=== PATIENT | male | born 1965 | race Caucasian/White ===

== ENCOUNTER 2020-01-01 16:20 | Inpatient (IN) | payer OTHER ==
[2020-01-01] MEDS ORDERED: Sodium Chloride 0.9% 2.5 ML Syringe FLUSH PRN (17:48)
[2020-01-01] MEDS ORDERED: Sodium Chloride 0.9% 10 ML Syringe FLUSH PRN (17:48)
[2020-01-01] MEDS ORDERED: Sodium Chloride 0.9% 1,000 ML IV ONE (17:48)
[2020-01-01] MEDS ORDERED: Vancomycin 1.25 GM SDV ONE (18:09)
--- NOTE | 2020-01-01 18:26 | CR ---
Indication: Cat bite 1.5 weeks ago with persistent swelling Technique: Two views right hand Comparison: None Findings/impression:: No fractures or bone lesions. No evidence for osteomyelitis. Focal soft tissue swelling of the proximal to mid 2nd digit. No soft tissue gas or foreign body. Dictated by Romana White MD @ Jan 01 2020 6:22PM Signed by Dr. Romana White @ Jan 01 2020 6:24PM
[2020-01-01 18:41] LABS: CARBON DIOXIDE,CO2 27.1 mmol/L (21.0-32.0); POTASSIUM,K 4.3 mmol/L (3.5-5.1)
--- NOTE | 2020-01-01 19:15 | EDM.PDOC ---
ED HPI GENERAL MEDICAL PROBLEM - General Chief Complaint: Upper Extremity Injury/Pain Stated Complaint: right hand finger injury Time Seen by Provider: 01/01/20 17:45 Source of Information: Reports: Patient History Limitations: Reports: No Limitations - History of Present Illness INITIAL COMMENTS - FREE TEXT/NARRATIVE: Patient bit by a cat 1.5-weks ago, noted redness/swelling/pain, got antibiotics augmentin 3 days ago but still no relief, now spreading into hand, No fever, N/V or diahporesis Right Finger-Index Pain Score (Numeric/FACES): 5 - Related Data Allergies Allergy/AdvReac Type Severity Reaction Status Date / Time No Known Allergies Allergy Verified 01/01/20 17:38 Home Meds: Home Meds Escitalopram Oxalate [Lexapro] 10 mg PO DAILY 01/01/20 [History] Gabapentin [Neurontin] 01/01/20 [History] Past Medical History Cardiovascular History: Reports: High Cholesterol Musculoskeletal History: Reports: Back Pain, Chronic - Infectious Disease History Infectious Disease History: Reports: Chicken Pox - Past Surgical History HEENT Surgical History: Reports: Other (See Below) Other HEENT Surgeries/Procedures: Stapendectomy Social & Family History - Tobacco Use Smoking Status *Q: Never Smoker - Caffeine Use Caffeine Use: Reports: Coffee - Recreational Drug Use Recreational Drug Use: No Review of Systems - Review of Systems Review Of Systems: Comprehensive ROS is negative, except as noted in HPI. ED EXAM, GENERAL - Physical Exam Exam: See Below Exam Limited By: No Limitations General Appearance: Alert, WD/WN, No Apparent Distress Ears: Normal External Exam Nose: Normal Inspection Throat/Mouth: Normal Inspection, Normal Voice, No Airway Compromise Head: Atraumatic, Normocephalic Neck: Normal Inspection Respiratory/Chest: No Respiratory Distress, Lungs Clear, Normal Breath Sounds, No Accessory Muscle Use Cardiovascular: Normal Peripheral Pulses Extremities: Other (significant swelling/redness/TTP of R 2nd digit extending into hand) Neurological: Alert Psychiatric: Normal Affect, Normal Mood Course - Vital Signs Last Recorded V/S: Last Vital Signs Temp 96.5 F L 01/01/20 17:35 Pulse 70 01/01/20 17:35 Resp 22 H 01/01/20 17:35 BP 169/113 H 01/01/20 17:35 Pulse Ox 98 01/01/20 17:35 - Orders/Labs/Meds Orders: Active Orders 24 hr Category Date Time Status CULTURE BLOOD [BC] Stat Lab 01/01/20 18:07 Received CULTURE BLOOD [BC] Stat Lab 01/01/20 18:13 Received Sodium Chloride 0.9% [Saline Flush] Med 01/01/20 17:48 Active 10 ml FLUSH ASDIRECTED PRN Sodium Chloride 0.9% [Saline Flush] Med 01/01/20 17:48 Active 2.5 ml FLUSH ASDIRECTED PRN Vancomycin 1.25 gm Med 01/01/20 17:53 Active Sodium Chloride 0.9% [Normal Saline (AdvBag)] 250 ml IV ONETIME Blood Culture x2 Reflex Set [OM.PC] Stat Oth 01/01/20 17:51 Ordered Saline Lock Insert [OM.PC] Stat Oth 01/01/20 17:48 Ordered Medication Orders Vancomycin HCl 1.25 gm/ Sodium (Chloride) 250 mls @ 167 mls/hr IV ONETIME ONE Stop: 01/01/20 19:22 Last Admin: 01/01/20 18:12 Dose: 167 mls/hr Documented by: FINESSE Sodium Chloride (Saline Flush) 10 ml FLUSH ASDIRECTED PRN PRN Reason: Keep Vein Open Last Admin: 01/01/20 18:12 Dose: 10 ml Documented by: FINESSE Sodium Chloride (Saline Flush) 2.5 ml FLUSH ASDIRECTED PRN PRN Reason: Keep Vein Open Last Admin: 01/01/20 18:12 Dose: 2.5 ml Documented by: FINESSE Labs: Laboratory Tests 01/01/20 01/01/20 01/01/20 Range/Units 18:07 18:07 18:07 WBC 6.73 (4.0-11.0) K/uL RBC 4.99 (4.50-5.90) M/uL Hgb 14.2 (13.0-17.0) g/dL Hct 43.2 (38.0-50.0) % MCV 86.6 (80.0-98.0) fL MCH 28.5 (27.0-32.0) pg MCHC 32.9 (31.0-37.0) g/dL RDW Std Deviation 41.1 (28.0-62.0) fl RDW Coeff of Fredo 13 (11.0-15.0) % Plt Count 284 (150-400) K/uL MPV 9.40 (7.40-12.00) fL Neut % (Auto) 59.7 (48.0-80.0) % Lymph % (Auto) 29.4 (16.0-40.0) % [place] % (Auto) 9.7 (0.0-15.0) % Eos % (Auto) 0.9 (0.0-7.0) % Baso % (Auto) 0.3 (0.0-1.5) % Neut # (Auto) 4.0 (1.4-5.7) K/uL Lymph # (Auto) 2.0 (0.6-2.4) K/uL [place] # (Auto) 0.7 (0.0-0.8) K/uL Eos # (Auto) 0.1 (0.0-0.7) K/uL Baso # (Auto) 0.0 (0.0-0.1) K/uL Nucleated RBC % 0.0 /100WBC Nucleated RBCs # 0 K/uL Lactate 0.7 (0.20-2.00) mmol/L Sodium 141 (136-148) mmol/L Potassium 4.3 (3.5-5.1) mmol/L Chloride 105 (98-107) mmol/L Carbon Dioxide 27.1 (21.0-32.0) mmol/L BUN 12 (7.0-18.0) mg/dL Creatinine 1.3 (0.8-1.3) mg/dL Est Cr Clr Drug Dosing 66.47 mL/min Estimated GFR (MDRD) 58.0 ml/min Glucose 85 (74-106) mg/dL Calcium 8.6 (8.5-10.1) mg/dL Magnesium 2.1 (1.8-2.4) mg/dL Total Bilirubin 0.3 (0.2-1.0) mg/dL AST 22 (15-37) IU/L ALT 30 (14-63) IU/L Alkaline Phosphatase 78 (46-116) U/L Total Protein 8.3 H (6.4-8.2) g/dL Albumin 3.7 (3.4-5.0) g/dL Globulin 4.6 H (2.6-4.0) g/dL Albumin/Globulin Ratio 0.8 L (0.9-1.6) Meds: Medications Generic Name Dose Route Start Last Admin Trade Name Maryse PRN Reason Stop Dose Admin Vancomycin HCl 1.25 gm/ Sodium 250 mls @ 167 mls/hr 01/01/20 17:53 01/01/20 18:12 Chloride IV 01/01/20 19:22 167 mls/hr ONETIME ONE Administration Sodium Chloride 10 ml 01/01/20 17:48 01/01/20 18:12 Saline Flush FLUSH 10 ml ASDIRECTED PRN Administration Keep Vein Open Sodium Chloride 2.5 ml 01/01/20 17:48 01/01/20 18:12 Saline Flush FLUSH 2.5 ml ASDIRECTED PRN Administration Keep Vein Open Discontinued Medications Generic Name Dose Route Start Last Admin Trade Name Maryse PRN Reason Stop Dose Admin Sodium Chloride 1,000 mls @ 999 mls/hr 01/01/20 17:48 01/01/20 18:12 Normal Saline IV 01/01/20 18:48 999 mls/hr .Bolus ONE Administration Vancomycin HCl Confirm 01/01/20 18:09 01/01/20 18:33 Vancomycin Administered 01/01/20 18:10 Not Given Dose 1.25 gm .ROUTE .STK-MED ONE Departure - Departure Time of Disposition: 19:11 Disposition: Admitted As Inpatient 68 Condition: Good Clinical Impression: Cellulitis Qualifiers: Site of cellulitis: extremity Site of cellulitis of extremity: finger Laterality: left Qualified Code(s): L03.012 - Cellulitis of left finger - Discharge Information Referrals: PCP,Unknown [Primary Care Provider] - Sepsis Event Note (ED) - Evaluation Sepsis Screening Result: Possible Sepsis Risk - Focused Exam Vital Signs: Vital Signs Temp Pulse Resp BP Pulse Ox 01/01/20 17:35 96.5 F L 70 22 H 169/113 H 98 - My Orders Last 24 Hours: My Active Orders 01/01/20 17:48 Sodium Chloride 0.9% [Saline Flush] 10 ml FLUSH ASDIRECTED PRN Sodium Chloride 0.9% [Saline Flush] 2.5 ml FLUSH ASDIRECTED PRN Saline Lock Insert [OM.PC] Stat 01/01/20 17:51 Blood Culture x2 Reflex Set [OM.PC] Stat 01/01/20 17:53 Vancomycin 1.25 gm Sodium Chloride 0.9% [Normal Saline (AdvBag)] 250 ml IV ONETIME 01/01/20 18:07 CULTURE BLOOD [BC] Stat 01/01/20 18:13 CULTURE BLOOD [BC] Stat - Assessment/Plan Last 24 Hours: My Active Orders 01/01/20 17:48 Sodium Chloride 0.9% [Saline Flush] 10 ml FLUSH ASDIRECTED PRN Sodium Chloride 0.9% [Saline Flush] 2.5 ml FLUSH ASDIRECTED PRN Saline Lock Insert [OM.PC] Stat 01/01/20 17:51 Blood Culture x2 Reflex Set [OM.PC] Stat 01/01/20 17:53 Vancomycin 1.25 gm Sodium Chloride 0.9% [Normal Saline (AdvBag)] 250 ml IV ONETIME 01/01/20 18:07 CULTURE BLOOD [BC] Stat 01/01/20 18:13 CULTURE BLOOD [BC] Stat
[2020-01-01] MEDS ORDERED: Acetaminophen 325 MG Tab PO PRN (20:54)
[2020-01-01] MEDS ORDERED: Albuterol/Ipratropium 3.0-0.5 MG/3 ML Neb Soln NEB PRN (20:54)
--- NOTE | 2020-01-01 21:02 | PCM.HP.2 ---
H&P History of Present Illness - General Date of Service: 01/01/20 Admit Problem/Dx: Admission Diagnosis/Problem Admission Diagnosis/Problem Cellulitis - History of Present Illness Initial Comments - Free Text/Narative: Patient is a 54 y/o M who comes in redness/swelling/pain of his right index finger after he was bitt by his house cat 1.5 weeks ago. Patienmt states that his pain and swellinbg has been gettting progressivly worse and on sunday ( 3 days ago) he was started on oral antibiotics (augmentin) but his swelling and redness is getting worse. No fever, N/V or diahporesis, no chest pain, palpitations, chillls, Patient has PMH of HLD, tinnitus. Xray of hand was negative for OM or any gas/fluid or FB. Patient is being admitted for management of cellulitis after failing outpatient oral treatment. Right Finger-Index Pain Score (Numeric/FACES): 5 - Related Data Allergies/Adverse Reactions: Allergies Allergy/AdvReac Type Severity Reaction Status Date / Time No Known Allergies Allergy Verified 01/01/20 23:18 Home Medications: Home Meds Gabapentin [Neurontin] 600 mg PO TID 01/01/20 [History] Budesonide/Formoterol Fumarate [Symbicort 160-4.5 Mcg Inhaler] 1 puff INH BID 01/02/20 [History] Sertraline [Zoloft] 100 mg PO QAM 01/02/20 [History] tiZANidine [Zanaflex] 8 mg PO BID PRN 01/02/20 [History] Past Medical History Cardiovascular History: Reports: High Cholesterol Musculoskeletal History: Reports: Back Pain, Chronic - Infectious Disease History Infectious Disease History: Reports: Chicken Pox - Past Surgical History HEENT Surgical History: Reports: Other (See Below) Other HEENT Surgeries/Procedures: Stapendectomy Social & Family History - Tobacco Use Smoking Status *Q: Never Smoker - Caffeine Use Caffeine Use: Reports: Coffee - Recreational Drug Use Recreational Drug Use: No H&P Review of Systems - Review of Systems: Review Of Systems: See Below General: Denies: Fever, Chills, Malaise Pulmonary: Denies: Shortness of Breath, Wheezing Cardiovascular: Denies: Chest Pain, Palpitations, Dyspnea on Exertion Gastrointestinal: Denies: Abdominal Pain, Anorexia, Black Stool, Vomiting Genitourinary: Denies: Dysuria, Frequency Musculoskeletal: Denies: Neck Pain, Shoulder Pain Skin: Reports: Erythema, Wound, Lesions. Denies: Cyanosis, Jaundice Psychiatric: Denies: Confusion, Depression, Mood Lability Hematologic/Lymphatic: Denies: Anemia, Easy Bleeding Exam - Exam Exam: See Below - Vital Signs Vital Signs: Last Vital Signs Temp 35.8 C L 01/01/20 17:35 Pulse 72 01/01/20 19:44 Resp 20 01/01/20 19:44 BP 169/113 H 01/01/20 17:35 Pulse Ox 96 01/01/20 19:44 Weight: 94.347 kg - Exam General: Alert, Oriented Neck: Supple, Trachea Midline Lungs: Clear to Auscultation Cardiovascular: Regular Rate, Regular Rhythm GI/Abdominal Exam: Normal Bowel Sounds, Soft, Non-Tender Skin: Warm, Other (right indedx finger swollen and red, underlying fluctulance, with modertae drainage. ) - Patient Data Lab Results Last 24 hrs: Laboratory Results - last 24 hr 01/01/20 01/01/20 01/01/20 Range/Units 18:07 18:07 18:07 WBC 6.73 (4.0-11.0) K/uL RBC 4.99 (4.50-5.90) M/uL Hgb 14.2 (13.0-17.0) g/dL Hct 43.2 (38.0-50.0) % MCV 86.6 (80.0-98.0) fL MCH 28.5 (27.0-32.0) pg MCHC 32.9 (31.0-37.0) g/dL RDW Std Deviation 41.1 (28.0-62.0) fl RDW Coeff of Fredo 13 (11.0-15.0) % Plt Count 284 (150-400) K/uL MPV 9.40 (7.40-12.00) fL Neut % (Auto) 59.7 (48.0-80.0) % Lymph % (Auto) 29.4 (16.0-40.0) % [place] % (Auto) 9.7 (0.0-15.0) % Eos % (Auto) 0.9 (0.0-7.0) % Baso % (Auto) 0.3 (0.0-1.5) % Neut # (Auto) 4.0 (1.4-5.7) K/uL Lymph # (Auto) 2.0 (0.6-2.4) K/uL [place] # (Auto) 0.7 (0.0-0.8) K/uL Eos # (Auto) 0.1 (0.0-0.7) K/uL Baso # (Auto) 0.0 (0.0-0.1) K/uL Nucleated RBC % 0.0 /100WBC Nucleated RBCs # 0 K/uL Lactate 0.7 (0.20-2.00) mmol/L Sodium 141 (136-148) mmol/L Potassium 4.3 (3.5-5.1) mmol/L Chloride 105 (98-107) mmol/L Carbon Dioxide 27.1 (21.0-32.0) mmol/L BUN 12 (7.0-18.0) mg/dL Creatinine 1.3 (0.8-1.3) mg/dL Est Cr Clr Drug Dosing 66.47 mL/min Estimated GFR (MDRD) 58.0 ml/min Glucose 85 (74-106) mg/dL Calcium 8.6 (8.5-10.1) mg/dL Magnesium 2.1 (1.8-2.4) mg/dL Total Bilirubin 0.3 (0.2-1.0) mg/dL AST 22 (15-37) IU/L ALT 30 (14-63) IU/L Alkaline Phosphatase 78 (46-116) U/L Total Protein 8.3 H (6.4-8.2) g/dL Albumin 3.7 (3.4-5.0) g/dL Globulin 4.6 H (2.6-4.0) g/dL Albumin/Globulin Ratio 0.8 L (0.9-1.6) Result Diagrams: 01/02/20 04:38 01/02/20 04:38 Sepsis Event Note - Evaluation Sepsis Screening Result: Possible Sepsis Risk - Focused Exam Vital Signs: Vital Signs Temp Pulse Resp BP Pulse Ox 01/01/20 19:44 72 20 96 01/01/20 17:35 35.8 C L 70 22 H 169/113 H 98 - Problem List (1) Cat bite involving extremity SNOMED Code(s): 084176637, [id number] ICD Code: [id number] - Status: Acute Current Visit: Yes (2) Cellulitis SNOMED Code(s): 263521157 ICD Code: L03.90 - CELLULITIS, UNSPECIFIED Status: Acute Current Visit: Yes Qualifiers: Site of cellulitis: extremity Site of cellulitis of extremity: finger L aterality: left Qualified Code(s): L03.012 - Cellulitis of left finger Problem List Initiated/Reviewed/Updated: Yes Orders Last 24hrs: Active Orders 24 hr Category Date Time Status Patient Status [ADT] Routine ADT 01/01/20 19:13 Active Antiembolic Devices [RC] PER UNIT ROUTINE Care 01/01/20 20:57 Ordered Oxygen Therapy [RC] PRN Care 01/01/20 20:56 Ordered RT Aerosol Therapy [RC] ASDIRECTED Care 01/01/20 20:57 Ordered VTE/DVT Education [RC] PER UNIT ROUTINE Care 01/01/20 20:56 Ordered Vital Signs [RC] Q4H Care 01/01/20 20:56 Ordered Heart Healthy Diet [DIET] Diet 01/02/20 Breakfast Ordered BMP [BASIC METABOLIC PANEL,BMP] [CHEM] AM Lab 01/02/20 05:11 Ordered CBC WITH AUTO DIFF [HEME] AM Lab 01/02/20 05:11 Ordered CORONAVIRUS COVID-19 PCR PHL Stat Lab 01/01/20 20:52 Ordered CULTURE BLOOD [BC] Stat Lab 01/01/20 18:07 Received CULTURE BLOOD [BC] Stat Lab 01/01/20 18:13 Received GLYCOSYLATED HEMOGLOBIN,HGBA1C [CHEM] AM Lab 01/02/20 05:11 Ordered MAGNESIUM [CHEM] AM Lab 01/02/20 05:11 Ordered PHOSPHORUS [CHEM] AM Lab 01/02/20 05:11 Ordered Acetaminophen [TylenoL] Med 01/01/20 20:54 Ordered 650 mg PO Q4H PRN Albuterol/Ipratropium [DuoNeb 3.0-0.5 MG/3 ML] Med 01/01/20 20:54 Ordered 3 ml NEB Q4HRRT PRN Escitalopram [Lexapro] Med 01/02/20 09:00 Ordered 10 mg PO DAILY Lactated Ringers @ 100 MLS/HR(1,000ml) Med 01/01/20 21:00 Ordered Lactated Ringers [Ringers, Lactated] 1,000 ml IV ASDIRECTED Pharmacy to Dose - Vancomycin Med 01/02/20 08:00 Ordered 1 dose .XX ASDIRECTED Sodium Chloride 0.9% [Saline Flush] Med 01/01/20 17:48 Active 10 ml FLUSH ASDIRECTED PRN Sodium Chloride 0.9% [Saline Flush] Med 01/01/20 17:48 Active 2.5 ml FLUSH ASDIRECTED PRN Blood Culture x2 Reflex Set [OM.PC] Stat Ot 01/01/20 17:51 Ordered Saline Lock Insert [OM.PC] Stat Oth 01/01/20 17:48 Ordered Sequential Compression Device [OM.PC] Per Unit Routine Ot 01/01/20 20:56 Ordered Resuscitation Status Routine Resus Stat 01/01/20 20:54 Ordered Medication Orders Acetaminophen (Tylenol) 650 mg PO Q4H PRN PRN Reason: Pain (Mild 1-3)/fever Albuterol/Ipratropium (Duoneb 3.0-0.5 Mg/3 Ml) 3 ml NEB Q4HRRT PRN PRN Reason: Shortness Of Breath/wheezing Escitalopram Oxalate (Lexapro) 10 mg PO DAILY [facility] Lactated Ringer's (Ringers, Lactated) 1,000 mls @ 100 mls/hr IV ASDIRECTED [facility] Sodium Chloride (Saline Flush) 10 ml FLUSH ASDIRECTED PRN PRN Reason: Keep Vein Open Last Admin: 01/01/20 18:12 Dose: 10 ml Documented by: DANNYKAGwen Sodium Chloride (Saline Flush) 2.5 ml FLUSH ASDIRECTED PRN PRN Reason: Keep Vein Open Last Admin: 01/01/20 18:12 Dose: 2.5 ml Documented by: [email or web address] Vancomycin HCl (Pharmacy To Dose - Vancomycin) 1 dose .XX ASDIRECTED [facility] Assessment/Plan Comment:: 54 y/o M admitted for right hand cellulitis/abscess cont IV vancomycin, add clindamycin f/u on blood and wound cultures consult wound care May need CT scan of hand if no improvement Tylenol for pain check HbA1c, lipid Possibly has HTN, cont vitals Q4H
[2020-01-01] MEDS: Lactated Ringers 1,000 ML IV SCH (22:59)
[2020-01-02] MEDS ORDERED: DEXTROSE IV ONE (01:30)
[2020-01-02] MEDS ORDERED: CLINDAMYCIN PHOSPHATE IV ONE (01:30)
[2020-01-02 06:36] LABS: BLOOD UREA NITROGEN,BUN 11 mg/dL (7.0-18.0); CHLORIDE,CL 106 mmol/L (98-107); GLUCOSE RANDOM 81 mg/dL (74-106); POTASSIUM,K 4.1 mmol/L (3.5-5.1); SODIUM,NA 141 mmol/L (136-148)
[2020-01-02 07:10] LABS: HEMOGLOBIN A1C 5.9 % (4.5-6.2)
[2020-01-02] MEDS: Lactated Ringers 1,000 ML IV SCH ×2 (08:10→23:31)
[2020-01-02] MEDS ORDERED: cefTRIAXone 2 GM in Premix Bag 1 BAG IV SCH (08:15)
[2020-01-02] MEDS ORDERED: Escitalopram 10 MG Tab PO SCH (09:00)
[2020-01-02] MEDS: Clindamycin Phosphate in D5W 600 MG in Premix Bag 1 BAG IV SCH ×4 (10:35→17:33)
[2020-01-02] MEDS: cefTRIAXone 2 GM in Premix Bag 1 BAG IV SCH (11:24)
--- NOTE | 2020-01-02 12:09 | PCM.PN ---
- General Info Date of Service: 01/02/20 Admission Dx/Problem (Free Text): Admission Diagnosis/Problem Admission Diagnosis/Problem Cellulitis Subjective Update: Reports pain improvement and redness to R hand and finger. scant purulent drainage noted. No chest pain or SOB. Feeling ok. Functional Status: Reports: Pain Controlled, Tolerating Diet, Ambulating, Urinating - Review of Systems General: Reports: No Symptoms. Denies: Fatigue, Malaise Pulmonary: Reports: No Symptoms. Denies: Shortness of Breath Cardiovascular: Reports: No Symptoms. Denies: Chest Pain Gastrointestinal: Reports: No Symptoms. Denies: Abdominal Pain, Nausea, Vomiting Genitourinary: Reports: No Symptoms. Denies: Dysuria, Frequency, Burning Musculoskeletal: Reports: No Symptoms Skin: Reports: No Symptoms, Other (wound to R index finger, slightly improvement) Neurological: Reports: No Symptoms Psychiatric: Reports: No Symptoms - Patient Data Vitals - Most Recent: Last Vital Signs Temp 98.4 F 01/02/20 07:18 Pulse 68 01/02/20 07:18 Resp 16 01/02/20 07:18 BP 135/81 01/02/20 07:18 Pulse Ox 96 01/02/20 07:18 Weight - Most Recent: 94.347 kg I&O - Last 24 Hours: Intake & Output 01/01/20 01/02/20 01/02/20 22:59 06:59 14:59 Intake Total 680 300 Output Total 520 Balance 160 300 Lab Results Last 24 Hours: Laboratory Results - last 24 hr 01/01/20 01/01/20 01/01/20 Range/Units 18:07 18:07 18:07 WBC 6.73 (4.0-11.0) K/uL RBC 4.99 (4.50-5.90) M/uL Hgb 14.2 (13.0-17.0) g/dL Hct 43.2 (38.0-50.0) % MCV 86.6 (80.0-98.0) fL MCH 28.5 (27.0-32.0) pg MCHC 32.9 (31.0-37.0) g/dL RDW Std Deviation 41.1 (28.0-62.0) fl RDW Coeff of Fredo 13 (11.0-15.0) % Plt Count 284 (150-400) K/uL MPV 9.40 (7.40-12.00) fL Neut % (Auto) 59.7 (48.0-80.0) % Lymph % (Auto) 29.4 (16.0-40.0) % [place] % (Auto) 9.7 (0.0-15.0) % Eos % (Auto) 0.9 (0.0-7.0) % Baso % (Auto) 0.3 (0.0-1.5) % Neut # (Auto) 4.0 (1.4-5.7) K/uL Lymph # (Auto) 2.0 (0.6-2.4) K/uL [place] # (Auto) 0.7 (0.0-0.8) K/uL Eos # (Auto) 0.1 (0.0-0.7) K/uL Baso # (Auto) 0.0 (0.0-0.1) K/uL Nucleated RBC % 0.0 /100WBC Nucleated RBCs # 0 K/uL Lactate 0.7 (0.20-2.00) mmol/L Sodium 141 (136-148) mmol/L Potassium 4.3 (3.5-5.1) mmol/L Chloride 105 (98-107) mmol/L Carbon Dioxide 27.1 (21.0-32.0) mmol/L BUN 12 (7.0-18.0) mg/dL Creatinine 1.3 (0.8-1.3) mg/dL Est Cr Clr Drug Dosing 66.47 mL/min Estimated GFR (MDRD) 58.0 ml/min Glucose 85 (74-106) mg/dL Hemoglobin A1c (4.5-6.2) % Calcium 8.6 (8.5-10.1) mg/dL Phosphorus (2.6-4.7) mg/dL Magnesium 2.1 (1.8-2.4) mg/dL Total Bilirubin 0.3 (0.2-1.0) mg/dL AST 22 (15-37) IU/L ALT 30 (14-63) IU/L Alkaline Phosphatase 78 (46-116) U/L Total Protein 8.3 H (6.4-8.2) g/dL Albumin 3.7 (3.4-5.0) g/dL Globulin 4.6 H (2.6-4.0) g/dL Albumin/Globulin Ratio 0.8 L (0.9-1.6) Triglycerides (0-200) mg/dL Cholesterol (50-200) mg/dL LDL Cholesterol, Calc (60-180) mg/dL VLDL Cholesterol (5-55) mg/dL HDL Cholesterol (40-60) mg/dL Cholesterol/HDL Ratio (3.3-6.0) SARS-CoV-2 RNA (RASHI) (NEGATIVE) 01/01/20 01/02/20 01/02/20 Range/Units 21:03 04:38 04:38 WBC 5.07 (4.0-11.0) K/uL RBC 4.73 (4.50-5.90) M/uL Hgb 13.2 (13.0-17.0) g/dL Hct 40.9 (38.0-50.0) % MCV 86.5 (80.0-98.0) fL MCH 27.9 (27.0-32.0) pg MCHC 32.3 (31.0-37.0) g/dL RDW Std Deviation 41.1 (28.0-62.0) fl RDW Coeff of Fredo 13 (11.0-15.0) % Plt Count 285 (150-400) K/uL MPV 9.90 (7.40-12.00) fL Neut % (Auto) 52.0 (48.0-80.0) % Lymph % (Auto) 36.1 (16.0-40.0) % [place] % (Auto) 9.9 (0.0-15.0) % Eos % (Auto) 1.2 (0.0-7.0) % Baso % (Auto) 0.8 (0.0-1.5) % Neut # (Auto) 2.6 (1.4-5.7) K/uL Lymph # (Auto) 1.8 (0.6-2.4) K/uL [place] # (Auto) 0.5 (0.0-0.8) K/uL Eos # (Auto) 0.1 (0.0-0.7) K/uL Baso # (Auto) 0.0 (0.0-0.1) K/uL Nucleated RBC % 0.0 /100WBC Nucleated RBCs # 0 K/uL Lactate (0.20-2.00) mmol/L Sodium 141 (136-148) mmol/L Potassium 4.1 (3.5-5.1) mmol/L Chloride 106 (98-107) mmol/L Carbon Dioxide 26.0 (21.0-32.0) mmol/L BUN 11 (7.0-18.0) mg/dL Creatinine 1.1 (0.8-1.3) mg/dL Est Cr Clr Drug Dosing 78.56 mL/min Estimated GFR (MDRD) > 60.0 ml/min Glucose 81 (74-106) mg/dL Hemoglobin A1c (4.5-6.2) % Calcium 8.2 L (8.5-10.1) mg/dL Phosphorus 2.7 (2.6-4.7) mg/dL Magnesium 1.8 (1.8-2.4) mg/dL Total Bilirubin (0.2-1.0) mg/dL AST (15-37) IU/L ALT (14-63) IU/L Alkaline Phosphatase (46-116) U/L Total Protein (6.4-8.2) g/dL Albumin (3.4-5.0) g/dL Globulin (2.6-4.0) g/dL Albumin/Globulin Ratio (0.9-1.6) Triglycerides 89 (0-200) mg/dL Cholesterol 152 (50-200) mg/dL LDL Cholesterol, Calc 91 (60-180) mg/dL VLDL Cholesterol 17 (5-55) mg/dL HDL Cholesterol 43 (40-60) mg/dL Cholesterol/HDL Ratio 3.5 (3.3-6.0) SARS-CoV-2 RNA (RASHI) NEGATIVE (NEGATIVE) 01/02/20 Range/Units 04:38 WBC (4.0-11.0) K/uL RBC (4.50-5.90) M/uL Hgb (13.0-17.0) g/dL Hct (38.0-50.0) % MCV (80.0-98.0) fL MCH (27.0-32.0) pg MCHC (31.0-37.0) g/dL RDW Std Deviation (28.0-62.0) fl RDW Coeff of Fredo (11.0-15.0) % Plt Count (150-400) K/uL MPV (7.40-12.00) fL Neut % (Auto) (48.0-80.0) % Lymph % (Auto) (16.0-40.0) % [place] % (Auto) (0.0-15.0) % Eos % (Auto) (0.0-7.0) % Baso % (Auto) (0.0-1.5) % Neut # (Auto) (1.4-5.7) K/uL Lymph # (Auto) (0.6-2.4) K/uL [place] # (Auto) (0.0-0.8) K/uL Eos # (Auto) (0.0-0.7) K/uL Baso # (Auto) (0.0-0.1) K/uL Nucleated RBC % /100WBC Nucleated RBCs # K/uL Lactate (0.20-2.00) mmol/L Sodium (136-148) mmol/L Potassium (3.5-5.1) mmol/L Chloride (98-107) mmol/L Carbon Dioxide (21.0-32.0) mmol/L BUN (7.0-18.0) mg/dL Creatinine (0.8-1.3) mg/dL Est Cr Clr Drug Dosing mL/min Estimated GFR (MDRD) ml/min Glucose (74-106) mg/dL Hemoglobin A1c 5.9 (4.5-6.2) % Calcium (8.5-10.1) mg/dL Phosphorus (2.6-4.7) mg/dL Magnesium (1.8-2.4) mg/dL Total Bilirubin (0.2-1.0) mg/dL AST (15-37) IU/L ALT (14-63) IU/L Alkaline Phosphatase (46-116) U/L Total Protein (6.4-8.2) g/dL Albumin (3.4-5.0) g/dL Globulin (2.6-4.0) g/dL Albumin/Globulin Ratio (0.9-1.6) Triglycerides (0-200) mg/dL Cholesterol (50-200) mg/dL LDL Cholesterol, Calc (60-180) mg/dL VLDL Cholesterol (5-55) mg/dL HDL Cholesterol (40-60) mg/dL Cholesterol/HDL Ratio (3.3-6.0) SARS-CoV-2 RNA (RASHI) (NEGATIVE) Eliecer Results Last 24 Hours: Microbiology 01/01/20 23:57 Wound Culture - Preliminary Finger, Right - Right Index Med Orders - Current: Current Medications Acetaminophen (Tylenol) 650 mg PO Q4H PRN PRN Reason: Pain (Mild 1-3)/fever Albuterol/Ipratropium (Duoneb 3.0-0.5 Mg/3 Ml) 3 ml NEB Q4HRRT PRN PRN Reason: Shortness Of Breath/wheezing Escitalopram Oxalate (Lexapro) 10 mg PO DAILY [facility] Last Admin: 01/02/20 09:17 Dose: Not Given Documented by: Lactated Ringer's (Ringers, Lactated) 1,000 mls @ 100 mls/hr IV ASDIRECTED [facility] Last Admin: 01/02/20 08:10 Dose: 100 mls/hr Documented by: Vancomycin HCl 1.25 gm/ Sodium (Chloride) 250 mls @ 166.667 mls/hr IV Q12H [facility] Last Admin: 01/02/20 08:07 Dose: 166.667 mls/hr Documented by: Clindamycin Phosphate 600 mg/ (Premix) 50 mls @ 94.34 mls/hr IV Q8H [facility] Last Admin: 01/02/20 10:35 Dose: 94.34 mls/hr Documented by: Ceftriaxone Sodium/Dextrose 2 (gm/ Premix) 50 mls @ 100 mls/hr IV Q24H [facility] Last Admin: 01/02/20 11:24 Dose: 100 mls/hr Documented by: Sodium Chloride (Saline Flush) 10 ml FLUSH ASDIRECTED PRN PRN Reason: Keep Vein Open Last Admin: 01/01/20 18:12 Dose: 10 ml Documented by: Sodium Chloride (Saline Flush) 2.5 ml FLUSH ASDIRECTED PRN PRN Reason: Keep Vein Open Last Admin: 01/01/20 18:12 Dose: 2.5 ml Documented by: Vancomycin HCl (Pharmacy To Dose - Vancomycin) 1 dose .XX ASDIRECTED [facility] Discontinued Medications Sodium Chloride (Normal Saline) 1,000 mls @ 999 mls/hr IV .Bolus ONE Stop: 01/01/20 18:48 Last Admin: 01/01/20 18:12 Dose: 999 mls/hr Documented by: Vancomycin HCl 1.25 gm/ Sodium (Chloride) 250 mls @ 167 mls/hr IV ONETIME ONE Stop: 01/01/20 19:22 Last Admin: 01/01/20 18:12 Dose: 167 mls/hr Documented by: Clindamycin Phosphate 450 mg/ (Sodium Chloride) 53 mls @ 100 mls/hr IV Q8H [facility] Clindamycin Phosphate (Cleocin In D5w) 37.5 mls @ 75 mls/hr IV ONETIME ONE Stop: 01/02/20 01:59 Last Admin: 01/02/20 02:00 Dose: 75 mls/hr Documented by: Ceftriaxone Sodium/Dextrose 2 (gm/ Premix) 50 mls @ 100 mls/hr IV Q24H [facility] Last Admin: 01/02/20 08:43 Dose: Not Given Documented by: Vancomycin HCl (Vancomycin) Confirm Administered Dose 1.25 gm .ROUTE .STK-MED ONE Stop: 01/01/20 18:10 Last Admin: 01/01/20 18:33 Dose: Not Given Documented by: Vancomycin HCl (Pharmacy To Dose - Vancomycin) 1 dose .XX ASDIRECTED [facility] - Exam General: Alert, Oriented, Cooperative, No Acute Distress Lungs: Clear to Auscultation, Normal Respiratory Effort Cardiovascular: Regular Rate, Regular Rhythm GI/Abdominal Exam: Normal Bowel Sounds, Soft, Non-Tender Extremities: Normal Inspection, Normal Range of Motion, Non-Tender Wound/Incisions: Drainage (scant purulence noted.), Erythema Improving, Other (erythema improving to aroea surroing PIP on R index finger. dry scaling skin noted with induration and slight fluctuance over joint. ) Psy/Mental Status: Alert, Normal Affect, Normal Mood Sepsis Event Note - Evaluation Sepsis Screening Result: No Definite Risk - Focused Exam Vital Signs: Vital Signs Temp Pulse Resp BP Pulse Ox 01/02/20 07:18 98.4 F 68 16 135/81 96 01/02/20 04:24 97.8 F 58 L 18 144/82 H 96 - Problem List & Annotations (1) Cat bite involving extremity SNOMED Code(s): 469721003, 959581773 Code(s): KLW2435 - Status: Acute Current Visit: Yes (2) Cellulitis SNOMED Code(s): 921729035 Code(s): L03.90 - CELLULITIS, UNSPECIFIED Status: Acute Current Visit: Yes Qualifiers: Site of cellulitis: extremity Site of cellulitis of extremity: finger Laterality: left Qualified Code(s): L03.012 - Cellulitis of left finger - Problem List Review Problem List Initiated/Reviewed/Updated: Yes - My Orders Last 24 Hours: My Active Orders 01/02/20 10:18 Hand w Cont Rt [CT] Urgent 01/02/20 10:30 cefTRIAXone [Rocephin in Dextrose,Iso-Osm 2 GM/50 ML] 2 gm Premix Bag 1 bag IV Q24H - Plan Plan:: 54 y/o M admitted for right hand cellulitis possible abscess 1. Cat bite/ cellulitis to R PIP joint index finger - Add Rocephin, continue Clindamycin and Vancomycin - f/u on blood and wound cultures - Add CT scan of hand with contrast today, consult with surgery after CT - Tylenol for pain VTE prophylaxis: SCDs Dispo: Pending CT results, likely 1-2 more days.
[2020-01-02] MEDS ORDERED: Iopamidol 755 MG/ML 500 ML Multipack Bottle IVPUSH ONE (12:23)
--- NOTE | 2020-01-02 12:44 | CT ---
HISTORY: Cellulitis, cat bite of the index finger. TECHNIQUE: Intravenous contrast enhanced CT of the right hand. 75 mL of Isovue-370 intravenous contrast administered. COMPARISON: Radiographs 01/01/2020. FINDINGS: There is soft tissue swelling involving the index finger with infiltration of the soft tissues compatible with cellulitis. There is no soft tissue gas or radiopaque foreign body. There is a approximately 5 mm area of low attenuation within the soft tissues along the radial aspect of the proximal phalangeal joint of the index finger as subtly seen on axial image #226 series 202 and coronal image #57 of series 203. This may reflect a small fluid collection. There is no erosive change involving the proximal or distal interphalangeal joints of the index finger. No bony destructive change specific for acute osteomyelitis. There are a few scattered subchondral cysts involving metacarpal heads, distal scaphoid and distal radius. There are few scattered small bone islands. No acute fracture. IMPRESSION: 1. Soft tissue swelling along with soft tissue infiltration involving the index finger compatible with cellulitis. 2. No soft tissue gas. 3. Approximately 5 mm area of low attenuation within the soft tissues along the radial aspect of the proximal interphalangeal joint may reflect a small fluid collection. 4. No bony destructive change specific for osteomyelitis. 5. No radiopaque foreign body. Dictated by Eran Lane MD @ 01/02/2020 12:43:19 PM Please note that all CT scans at this facility use dose modulation, iterative reconstruction, and/or weight-based dosing when appropriate to reduce radiation dose to as low as reasonably achievable. Dictated by: Eran Lane MD @ 01/02/2020 12:43:29 (Electronically Signed)
--- NOTE | 2020-01-02 13:59 | PCM.SN.2 ---
- Free Text/Narrative Note: CT results reviewed and show soft tissue swelling along with 5 mm area of low attentuation with in the soft tissue along the radial aspect of the proxmial interphalangeal joint, may reflect small fluid collection. SPoke with Dr Harley, general surgery, who did not feel comfortable addressing concerns of hand. I spoke with Dr Joo Singh, Plastic surgeon and hand specialist from [facility]. She recommended, since improvement is happening with IV abx therapy, to continue with that now. If he stalls, worsens or has collection accumulate that is no longer draining would she then recommend transfer for I/D of that area. She also recommended warm soap soaks 15 min BID and encourage movement in soaks and elevation all times of day. Mary and updated on plan and are in agreement. Will change to inpatient status as he will need longer than 2 midnight stay.
[2020-01-02] MEDS ORDERED: Gabapentin 300 MG Cap PO SCH (14:00)
[2020-01-02] MEDS: Bacitracin Oint 28.35 GM Tube TOP SCH ×2 (14:38→22:46)
[2020-01-02] MEDS: SERTRALINE 100 MG PO SCH (14:41)
[2020-01-02] MEDS ORDERED: Diphtheria,Pertussis(Acell),Tetanus Vaccine 0.5 ML Syringe IM ONE (14:52)
[2020-01-02] MEDS: Budesonide/Formoterol Fumarate [Symbicort 160-4.5 Mcg Inh INH SCH (20:40)
[2020-01-02] MEDS: TIZANIDINE 4 MG PO PRN (20:41)
[2020-01-03] MEDS: Clindamycin Phosphate in D5W 600 MG in Premix Bag 1 BAG IV SCH ×6 (02:05→18:12)
[2020-01-03] MEDS: Bacitracin Oint 28.35 GM Tube TOP SCH ×3 (06:16→21:58)
[2020-01-03 06:34] LABS: BLOOD UREA NITROGEN,BUN 9 mg/dL (7.0-18.0); CARBON DIOXIDE,CO2 25.7 mmol/L (21.0-32.0); CHLORIDE,CL 108 mmol/L (98-107); GLUCOSE RANDOM 89 mg/dL (74-106); SODIUM,NA 143 mmol/L (136-148)
--- NOTE | 2020-01-03 08:40 | PCM.PN ---
- General Info Date of Service: 01/03/20 Admission Dx/Problem (Free Text): Admission Diagnosis/Problem Admission Diagnosis/Problem Cellulitis Subjective Update: Reports pain improvement and redness to R hand and finger. scant purulent drainage noted. No chest pain or SOB. Feeling ok. - Review of Systems General: Denies: Fever, Weakness, Fatigue, Malaise Pulmonary: Denies: Shortness of Breath, Pleuritic Chest Pain Cardiovascular: Denies: Chest Pain, Palpitations Gastrointestinal: Denies: Abdominal Pain, Constipation, Decreased Appetite Genitourinary: Denies: Dysuria, Frequency, Burning Musculoskeletal: Reports: Joint Pain, Joint Swelling - Patient Data Vitals - Most Recent: Last Vital Signs Temp 36.6 C 01/03/20 04:00 Pulse 61 01/03/20 04:00 Resp 14 01/03/20 04:00 BP 129/83 01/03/20 04:00 Pulse Ox 98 01/03/20 04:00 Weight - Most Recent: 94.347 kg I&O - Last 24 Hours: Intake & Output 01/02/20 01/03/20 01/03/20 22:59 06:59 14:59 Intake Total 1200 3403 Output Total 1720 2750 Balance -520 653 Lab Results Last 24 Hours: Laboratory Results - last 24 hr 01/03/20 01/03/20 01/03/20 Range/Units 05:35 05:35 07:30 WBC 5.09 (4.0-11.0) K/uL RBC 4.82 (4.50-5.90) M/uL Hgb 13.4 (13.0-17.0) g/dL Hct 41.7 (38.0-50.0) % MCV 86.5 (80.0-98.0) fL MCH 27.8 (27.0-32.0) pg MCHC 32.1 (31.0-37.0) g/dL RDW Std Deviation 41.1 (28.0-62.0) fl RDW Coeff of Fredo 13 (11.0-15.0) % Plt Count 273 (150-400) K/uL MPV 9.60 (7.40-12.00) fL Neut % (Auto) 54.6 (48.0-80.0) % Lymph % (Auto) 33.8 (16.0-40.0) % [place] % (Auto) 9.6 (0.0-15.0) % Eos % (Auto) 1.4 (0.0-7.0) % Baso % (Auto) 0.6 (0.0-1.5) % Neut # (Auto) 2.8 (1.4-5.7) K/uL Lymph # (Auto) 1.7 (0.6-2.4) K/uL [place] # (Auto) 0.5 (0.0-0.8) K/uL Eos # (Auto) 0.1 (0.0-0.7) K/uL Baso # (Auto) 0.0 (0.0-0.1) K/uL Nucleated RBC % 0.0 /100WBC Nucleated RBCs # 0 K/uL Sodium 143 (136-148) mmol/L Potassium 4.0 (3.5-5.1) mmol/L Chloride 108 H (98-107) mmol/L Carbon Dioxide 25.7 (21.0-32.0) mmol/L BUN 9 (7.0-18.0) mg/dL Creatinine 1.2 (0.8-1.3) mg/dL Est Cr Clr Drug Dosing 72.01 mL/min Estimated GFR (MDRD) > 60.0 ml/min Glucose 89 (74-106) mg/dL Calcium 8.3 L (8.5-10.1) mg/dL Vancomycin Trough 15.4 H (5.0-10.0) ug/mL Eliecer Results Last 24 Hours: Microbiology 01/01/20 18:13 Aerobic Blood Culture - Preliminary Blood - Venous - Lab Draw NO GROWTH AFTER 1 DAY Anaerobic Blood Culture - Preliminary NO GROWTH AFTER 1 DAY 01/01/20 18:07 Aerobic Blood Culture - Preliminary Blood - Venous NO GROWTH AFTER 1 DAY Anaerobic Blood Culture - Preliminary NO GROWTH AFTER 1 DAY 01/01/20 23:57 Wound Culture - Preliminary Finger, Right - Right Index Med Orders - Current: Current Medications Acetaminophen (Tylenol) 650 mg PO Q4H PRN PRN Reason: Pain (Mild 1-3)/fever Albuterol/Ipratropium (Duoneb 3.0-0.5 Mg/3 Ml) 3 ml NEB Q4HRRT PRN PRN Reason: Shortness Of Breath/wheezing Bacitracin (Bacitracin Oint) 0 gm TOP TID [facility] Last Admin: 01/03/20 06:16 Dose: 1 applic Documented by: Lactated Ringer's (Ringers, Lactated) 1,000 mls @ 100 mls/hr IV ASDIRECTED [facility] Last Admin: 01/02/20 23:31 Dose: 100 mls/hr Documented by: Vancomycin HCl 1.25 gm/ Sodium (Chloride) 250 mls @ 166.667 mls/hr IV Q12H [facility] Last Admin: 01/02/20 20:36 Dose: 166.667 mls/hr Documented by: Clindamycin Phosphate 600 mg/ (Premix) 50 mls @ 94.34 mls/hr IV Q8H [facility] Last Admin: 01/03/20 02:05 Dose: 94.34 mls/hr Documented by: Ceftriaxone Sodium/Dextrose 2 (gm/ Premix) 50 mls @ 100 mls/hr IV Q24H [facility] Last Admin: 01/02/20 11:24 Dose: 100 mls/hr Documented by: Budesonide/Formoterol Fumarate [Symbicort 160-4.5 Mcg Inh 1 each INH BID [facility] Last Admin: 01/02/20 20:40 Dose: 1 each Documented by: Sertraline [Zoloft] (100 Mg) 1 each PO QAM [facility] Last Admin: 01/02/20 14:41 Dose: 1 each Documented by: Tizanidine [Zanaflex (] 4 Mg) 2 each PO BID PRN PRN Reason: Muscle Spasm Last Admin: 01/02/20 20:41 Dose: 2 each Documented by: Gabapentin 600 Mg 1 each PO TID [facility] Last Admin: 01/03/20 06:16 Dose: 1 each Documented by: Sodium Chloride (Saline Flush) 10 ml FLUSH ASDIRECTED PRN PRN Reason: Keep Vein Open Last Admin: 01/01/20 18:12 Dose: 10 ml Documented by: Sodium Chloride (Saline Flush) 2.5 ml FLUSH ASDIRECTED PRN PRN Reason: Keep Vein Open Last Admin: 01/01/20 18:12 Dose: 2.5 ml Documented by: Vancomycin HCl (Pharmacy To Dose - Vancomycin) 1 dose .XX ASDIRECTED [facility] Discontinued Medications Diphtheria/Tetanus/Acell Pertussis (Adacel) 0.5 ml IM .ONCE ONE Stop: 10/02/20 14:53 Last Admin: 01/02/20 15:26 Dose: 0.5 ml Documented by: Escitalopram Oxalate (Lexapro) 10 mg PO DAILY [facility] Last Admin: 01/02/20 09:17 Dose: Not Given Documented by: Gabapentin (Neurontin) 600 mg PO TID [facility] Last Admin: 01/02/20 14:37 Dose: 600 mg Documented by: Sodium Chloride (Normal Saline) 1,000 mls @ 999 mls/hr IV .Bolus ONE Stop: 01/01/20 18:48 Last Admin: 01/01/20 18:12 Dose: 999 mls/hr Documented by: Vancomycin HCl 1.25 gm/ Sodium (Chloride) 250 mls @ 167 mls/hr IV ONETIME ONE Stop: 01/01/20 19:22 Last Admin: 01/01/20 18:12 Dose: 167 mls/hr Documented by: Clindamycin Phosphate 450 mg/ (Sodium Chloride) 53 mls @ 100 mls/hr IV Q8H [facility] Clindamycin Phosphate (Cleocin In D5w) 37.5 mls @ 75 mls/hr IV ONETIME ONE Stop: 01/02/20 01:59 Last Admin: 01/02/20 02:00 Dose: 75 mls/hr Documented by: Ceftriaxone Sodium/Dextrose 2 (gm/ Premix) 50 mls @ 100 mls/hr IV Q24H [facility] Last Admin: 01/02/20 08:43 Dose: Not Given Documented by: Iopamidol (Isovue Multipack-370 (76%)) 75 ml IVPUSH ONETIME ONE Stop: 01/02/20 12:24 Last Admin: 01/02/20 12:24 Dose: 75 ml Documented by: Vancomycin HCl (Vancomycin) Confirm Administered Dose 1.25 gm .ROUTE .STK-MED ONE Stop: 01/01/20 18:10 Last Admin: 01/01/20 18:33 Dose: Not Given Documented by: Vancomycin HCl (Pharmacy To Dose - Vancomycin) 1 dose .XX ASDIRECTED [facility] - Exam Quality Assessment: Supplemental Oxygen Neck: Supple, Trachea Midline Lungs: Clear to Auscultation, Normal Respiratory Effort Cardiovascular: Regular Rate, Regular Rhythm GI/Abdominal Exam: Normal Bowel Sounds, Non-Tender Extremities: Joint Swelling, Increased Warmth, Redness Wound/Incisions: Drainage, Erythema, Erythema Improving Sepsis Event Note - Evaluation Sepsis Screening Result: No Definite Risk - Focused Exam Vital Signs: Vital Signs Temp Pulse Resp BP Pulse Ox 01/03/20 04:00 36.6 C 61 14 129/83 98 01/03/20 00:00 36.1 C 61 14 131/77 100 - Problem List & Annotations (1) Cat bite involving extremity SNOMED Code(s): 587804966, 480726545 Code(s): FDY4634 - Status: Acute Current Visit: Yes (2) Cellulitis SNOMED Code(s): 225825470 Code(s): L03.90 - CELLULITIS, UNSPECIFIED Status: Acute Current Visit: Y es Qualifiers: Site of cellulitis: extremity Site of cellulitis of extremity: finger Laterality: left Qualified Code(s): L03.012 - Cellulitis of left finger - Problem List Review Problem List Initiated/Reviewed/Updated: Yes - My Orders Last 24 Hours: My Active Orders 01/02/20 08:00 Vancomycin 1.25 gm Sodium Chloride 0.9% [Normal Saline (AdvBag)] 250 ml IV Q12H 01/02/20 10:00 Clindamycin Phosphate in D5W [Cleocin in D5W] 600 mg Premix Bag 1 bag IV Q8H 01/04/20 07:30 VANCOMYCIN TROUGH [CHEM] Routine - Plan Plan:: 54 y/o M admitted for right hand cellulitis possible abscess 1. Cat bite/ cellulitis to R PIP joint index finger - Add Rocephin, continue Clindamycin and Vancomycin - f/u on blood and wound cultures - Tylenol for pain - spoke to Hand surgeon yesterday, recommended continuing current treatment and immediate outpatient follow up upon dc VTE prophylaxis: SCDs Dispo: likely 1-2 more days.
[2020-01-03] MEDS: Budesonide/Formoterol Fumarate [Symbicort 160-4.5 Mcg Inh INH SCH ×2 (09:00→21:55)
[2020-01-03] MEDS: SERTRALINE 100 MG PO SCH (09:00)
[2020-01-03] MEDS: cefTRIAXone 2 GM in Premix Bag 1 BAG IV SCH (11:14)
[2020-01-03] MEDS: Lactated Ringers 1,000 ML IV SCH (13:34)
[2020-01-03] MEDS: TIZANIDINE 4 MG PO PRN (21:56)
[2020-01-04] MEDS: Clindamycin Phosphate in D5W 600 MG in Premix Bag 1 BAG IV SCH ×6 (02:25→17:12)
[2020-01-04] MEDS: Lactated Ringers 1,000 ML IV SCH ×2 (03:23→13:55)
[2020-01-04] MEDS: Bacitracin Oint 28.35 GM Tube TOP SCH ×3 (06:27→21:53)
[2020-01-04 07:58] LABS: BLOOD UREA NITROGEN,BUN 9 mg/dL (7.0-18.0); CARBON DIOXIDE,CO2 27.6 mmol/L (21.0-32.0); CHLORIDE,CL 108 mmol/L (98-107); GLUCOSE RANDOM 89 mg/dL (74-106); POTASSIUM,K 4.1 mmol/L (3.5-5.1); SODIUM,NA 142 mmol/L (136-148)
[2020-01-04] MEDS: Budesonide/Formoterol Fumarate [Symbicort 160-4.5 Mcg Inh INH SCH ×2 (09:22→21:53)
[2020-01-04] MEDS: SERTRALINE 100 MG PO SCH (09:22)
[2020-01-04] MEDS: amLODIPine 5 MG Tab PO SCH (11:00)
[2020-01-04] MEDS: cefTRIAXone 2 GM in Premix Bag 1 BAG IV SCH (11:46)
--- NOTE | 2020-01-04 13:16 | PCM.PN ---
- General Info Date of Service: 01/04/20 Admission Dx/Problem (Free Text): Admission Diagnosis/Problem Admission Diagnosis/Problem Cellulitis Subjective Update: Reports significant pain improvement and redness to R hand and finger. scant purulent drainage noted. No chest pain or SOB. - Review of Systems General: Denies: Fever, Weakness, Fatigue HEENT: Denies: Contact Lenses, Dysphasia Pulmonary: Denies: Shortness of Breath, Pleuritic Chest Pain Cardiovascular: Denies: Chest Pain Gastrointestinal: Denies: Abdominal Pain, Constipation, Decreased Appetite Genitourinary: Denies: Dysuria, Frequency, Burning Musculoskeletal: Denies: Neck Pain, Shoulder Pain, Arm Pain Skin: Denies: Cyanosis, Jaundice, Mottled - Patient Data Vitals - Most Recent: Last Vital Signs Temp 36.2 C 01/04/20 11:36 Pulse 68 01/04/20 11:36 Resp 16 01/04/20 11:36 BP 160/95 H 01/04/20 11:36 Pulse Ox 95 01/04/20 11:36 Weight - Most Recent: 94.347 kg I&O - Last 24 Hours: Intake & Output 01/03/20 01/04/20 01/04/20 22:59 06:59 14:59 Intake Total 2956 300 Output Total 2850 2150 Balance -2850 806 300 Lab Results Last 24 Hours: Laboratory Results - last 24 hr 01/04/20 01/04/20 01/04/20 Range/Units 07:35 07:35 07:35 WBC 6.38 (4.0-11.0) K/uL RBC 4.92 (4.50-5.90) M/uL Hgb 13.8 (13.0-17.0) g/dL Hct 42.5 (38.0-50.0) % MCV 86.4 (80.0-98.0) fL MCH 28.0 (27.0-32.0) pg MCHC 32.5 (31.0-37.0) g/dL RDW Std Deviation 41.4 (28.0-62.0) fl RDW Coeff of Fredo 13 (11.0-15.0) % Plt Count 253 (150-400) K/uL MPV 9.30 (7.40-12.00) fL Neut % (Auto) 59.4 (48.0-80.0) % Lymph % (Auto) 28.5 (16.0-40.0) % [place] % (Auto) 9.9 (0.0-15.0) % Eos % (Auto) 1.9 (0.0-7.0) % Baso % (Auto) 0.3 (0.0-1.5) % Neut # (Auto) 3.8 (1.4-5.7) K/uL Lymph # (Auto) 1.8 (0.6-2.4) K/uL [place] # (Auto) 0.6 (0.0-0.8) K/uL Eos # (Auto) 0.1 (0.0-0.7) K/uL Baso # (Auto) 0.0 (0.0-0.1) K/uL Nucleated RBC % 0.0 /100WBC Nucleated RBCs # 0 K/uL Sodium 142 (136-148) mmol/L Potassium 4.1 (3.5-5.1) mmol/L Chloride 108 H (98-107) mmol/L Carbon Dioxide 27.6 (21.0-32.0) mmol/L BUN 9 (7.0-18.0) mg/dL Creatinine 1.1 (0.8-1.3) mg/dL Est Cr Clr Drug Dosing 78.56 mL/min Estimated GFR (MDRD) > 60.0 ml/min Glucose 89 (74-106) mg/dL Calcium 8.5 (8.5-10.1) mg/dL Phosphorus 3.2 (2.6-4.7) mg/dL Magnesium 2.0 (1.8-2.4) mg/dL Vancomycin Trough 14.9 H (5.0-10.0) ug/mL Eliecer Results Last 24 Hours: Microbiology 01/01/20 23:57 Wound Culture - Preliminary Finger, Right - Right Index 01/01/20 18:13 Aerobic Blood Culture - Preliminary Blood - Venous - Lab Draw NO GROWTH AFTER 2 DAYS Anaerobic Blood Culture - Preliminary NO GROWTH AFTER 2 DAYS 01/01/20 18:07 Aerobic Blood Culture - Preliminary Blood - Venous NO GROWTH AFTER 2 DAYS Anaerobic Blood Culture - Preliminary NO GROWTH AFTER 2 DAYS Med Orders - Current: Current Medications Acetaminophen (Tylenol) 650 mg PO Q4H PRN PRN Reason: Pain (Mild 1-3)/fever Albuterol/Ipratropium (Duoneb 3.0-0.5 Mg/3 Ml) 3 ml NEB Q4HRRT PRN PRN Reason: Shortness Of Breath/wheezing Amlodipine Besylate (Norvasc) 5 mg PO DAILY [facility] Last Admin: 01/04/20 11:00 Dose: 5 mg Documented by: Bacitracin (Bacitracin Oint) 0 gm TOP TID [facility] Last Admin: 01/04/20 06:27 Dose: 1 applic Documented by: Lactated Ringer's (Ringers, Lactated) 1,000 mls @ 100 mls/hr IV ASDIRECTED [facility] Last Admin: 01/04/20 03:23 Dose: 100 mls/hr Documented by: Vancomycin HCl 1.25 gm/ Sodium (Chloride) 250 mls @ 166.667 mls/hr IV Q12H [facility] Last Admin: 01/04/20 08:55 Dose: 166.667 mls/hr Documented by: Clindamycin Phosphate 600 mg/ (Premix) 50 mls @ 94.34 mls/hr IV Q8H [facility] Last Admin: 01/04/20 11:02 Dose: 94.34 mls/hr Documented by: Ceftriaxone Sodium/Dextrose 2 (gm/ Premix) 50 mls @ 100 mls/hr IV Q24H [facility] Last Admin: 01/04/20 11:46 Dose: 100 mls/hr Documented by: Budesonide/Formoterol Fumarate [Symbicort 160-4.5 Mcg Inh 1 each INH BID [facility] Last Admin: 01/04/20 09:22 Dose: 1 each Documented by: Sertraline [Zoloft] (100 Mg) 1 each PO QAM [facility] Last Admin: 01/04/20 09:22 Dose: 1 each Documented by: Tizanidine [Zanaflex (] 4 Mg) 2 each PO BID PRN PRN Reason: Muscle Spasm Last Admin: 01/03/20 21:56 Dose: 2 each Documented by: Gabapentin 600 Mg 1 each PO TID [facility] Last Admin: 01/04/20 06:27 Dose: 1 each Documented by: Sodium Chloride (Saline Flush) 10 ml FLUSH ASDIRECTED PRN PRN Reason: Keep Vein Open Last Admin: 01/01/20 18:12 Dose: 10 ml Documented by: Sodium Chloride (Saline Flush) 2.5 ml FLUSH ASDIRECTED PRN PRN Reason: Keep Vein Open Last Admin: 01/01/20 18:12 Dose: 2.5 ml Documented by: Vancomycin HCl (Pharmacy To Dose - Vancomycin) 1 dose .XX ASDIRECTED [facility] Discontinued Medications Diphtheria/Tetanus/Acell Pertussis (Adacel) 0.5 ml IM .ONCE ONE Stop: 01/02/20 14:53 Last Admin: 01/02/20 15:26 Dose: 0.5 ml Documented by: Escitalopram Oxalate (Lexapro) 10 mg PO DAILY [facility] Last Admin: 01/02/20 09:17 Dose: Not Given Documented by: Gabapentin (Neurontin) 600 mg PO TID [facility] Last Admin: 01/02/20 14:37 Dose: 600 mg Documented by: Sodium Chloride (Normal Saline) 1,000 mls @ 999 mls/hr IV .Bolus ONE Stop: 01/01/20 18:48 Last Admin: 01/01/20 18:12 Dose: 999 mls/hr Documented by: Vancomycin HCl 1.25 gm/ Sodium (Chloride) 250 mls @ 167 mls/hr IV ONETIME ONE Stop: 01/01/20 19:22 Last Admin: 01/01/20 18:12 Dose: 167 mls/hr Documented by: Clindamycin Phosphate 450 mg/ (Sodium Chloride) 53 mls @ 100 mls/hr IV Q8H [facility] Clindamycin Phosphate (Cleocin In D5w) 37.5 mls @ 75 mls/hr IV ONETIME ONE Stop: 01/02/20 01:59 Last Admin: 01/02/20 02:00 Dose: 75 mls/hr Documented by: Ceftriaxone Sodium/Dextrose 2 (gm/ Premix) 50 mls @ 100 mls/hr IV Q24H [facility] Last Admin: 01/02/20 08:43 Dose: Not Given Documented by: Iopamidol (Isovue Multipack-370 (76%)) 75 ml IVPUSH ONETIME ONE Stop: 01/02/20 12:24 Last Admin: 01/02/20 12:24 Dose: 75 ml Documented by: Vancomycin HCl (Vancomycin) Confirm Administered Dose 1.25 gm .ROUTE .STK-MED ONE Stop: 01/01/20 18:10 Last Admin: 01/01/20 18:33 Dose: Not Given Documented by: Vancomycin HCl (Pharmacy To Dose - Vancomycin) 1 dose .XX ASDIRECTED [facility] - Exam Quality Assessment: No: Supplemental Oxygen General: Alert, Oriented Neck: Supple Lungs: Clear to Auscultation, Normal Respiratory Effort Cardiovascular: Regular Rate, Regular Rhythm GI/Abdominal Exam: Normal Bowel Sounds, Soft, Non-Tender Extremities: Joint Swelling, Increased Warmth, Redness Sepsis Event Note - Evaluation Sepsis Screening Result: No Definite Risk - Focused Exam Vital Signs: Vital Signs Temp Pulse Resp BP BP Pulse Ox 01/04/20 11:36 36.2 C 68 16 160/95 H 95 01/04/20 11:00 152/92 H 01/04/20 07:40 36.2 C 62 16 152/92 H 95 01/04/20 04:00 36.7 C 61 16 124/77 97 - Problem List & Annotations (1) Cat bite involving extremity SNOMED Code(s): 242488955, 963877525 Code(s): HYA0910 - Status: Acute Current Visit: Yes (2) Cellulitis SNOMED Code(s): 255437109 Code(s): L03.90 - CELLULITIS, UNSPECIFIED Status: Acute Current Visit: Yes Qualifiers: Site of cellulitis: extremity Site of cellulitis of extremity: finger Laterality: left Qualified Code(s): L03.012 - Cellulitis of left finger - Problem List Review Problem List Initiated/Reviewed/Updated: Yes - My Orders Last 24 Hours: My Active Orders 01/04/20 10:00 amLODIPine [Norvasc] 5 mg PO DAILY 01/05/20 19:30 VANCOMYCIN TROUGH [CHEM] Routine - Plan Plan:: 54 y/o M admitted for right hand cellulitis possible abscess 1. Cat bite/ cellulitis to R PIP joint index finger -improving - cont Rocephin, continue Clindamycin and Vancomycin - f/u on blood and wound cultures - Tylenol for pain - spoke to Hand surgeon, recommended continuing current treatment and immediate outpatient follow up upon dc VTE prophylaxis: SCDs Dispo: likely 1-2 more days.
[2020-01-04] MEDS: TIZANIDINE 4 MG PO PRN (21:53)
[2020-01-05] MEDS: Lactated Ringers 1,000 ML IV SCH (02:07)
[2020-01-05] MEDS: Clindamycin Phosphate in D5W 600 MG in Premix Bag 1 BAG IV SCH ×4 (02:08→09:56)
[2020-01-05] MEDS: Bacitracin Oint 28.35 GM Tube TOP SCH (05:58)
[2020-01-05] MEDS: SERTRALINE 100 MG PO SCH (08:21)
[2020-01-05] MEDS: amLODIPine 5 MG Tab PO SCH (08:21)
[2020-01-05] MEDS: Budesonide/Formoterol Fumarate [Symbicort 160-4.5 Mcg Inh INH SCH (08:21)
[2020-01-05] MEDS: cefTRIAXone 2 GM in Premix Bag 1 BAG IV SCH (10:37)
[2020-01-05] MEDS ORDERED: Doxycycline 100 MG Cap PO ONE (10:54)
--- NOTE | 2020-01-05 10:55 | PCM.DCSUM1 ---
Discharge Summary - Hospital Course Brief History: Patient is a 54 y/o M who comes in redness/swelling/pain of his right index finger after he was bitt by his house cat 1.5 weeks ago. Patienmt states that his pain and swellinbg has been gettting progressivly worse and on sunday ( 3 days ago) he was started on oral antibiotics (augmentin) but his swelling and redness is getting worse. No fever, N/V or diahporesis, no chest pain, palpitations, chillls, Patient has PMH of HLD, tinnitus. Xray of hand was negative for OM or any gas/fluid or FB. Patient is being admitted for management of cellulitis after failing outpatient oral treatment. Diagnosis: Stroke: No - Discharge Data Discharge Date: 01/05/20 Discharge Disposition: Home, Self-Care 01 Condition: Good - Referral to Home Health Primary Care Physician: Clemente Healy NP - Discharge Diagnosis/Problem(s) (1) Cat bite involving extremity SNOMED Code(s): 225447803, 156741127 ICD Code: [id number] - Status: Acute (2) Cellulitis SNOMED Code(s): 375982688 ICD Code: L03.90 - CELLULITIS, UNSPECIFIED Status: Acute Qualifiers: Site of cellulitis: extremity Site of cellulitis of extremity: finger Laterality: left Qualified Code(s): L03.012 - Cellulitis of left finger - Patient Summary/Data Consults: Consultations 01/02/20 00:00 Consult to Wound Care Services [CONS] Routine Hospital Course: Admitting Diagnoses: Cellulitis abscess R index finger Discharge Diagnoses: Cellulitis abscess R index finger CARA Hernandez was admitted for failed outpatient management of R index finger cellulitis, placed on Rocephin, Clindamycin and Vancomycin. CT obtained of hand, which showed tiny abscess on radial side of finger, no joint effusion. I spoke with Dr Singh, hand specialist in [place] who recommended if improvement noted, continue IV antibiotics and allow drainage and encourage warm soaks. Over the weekend, he slowly improved, today the area opened and dark red drainage was noted some relief was noted by patient. I again reached out to Dr Singh, improvement is noted, but would like very close follow up. I will discharge patient today and he will see Dr Singh in her clinic tomorrow. Patient and are good with this. He is to take Docycycline BID for 10 days and follow any recommendations from Dr Singh after follow up tomorrow. He is to return to ED or clinic if concerns should arise. HTN noted during stay, he was started on Amlodipine 5 mg daily, he is to monitor BP at home. [facility] - Patient Instructions Diet: Regular Diet as Tolerated Activity: As Tolerated Showering/Bathing: May Shower Wound/Incision Care: Keep Operative Site/Wound Site Clean and Dry Notify Provider of: Fever, Increased Pain, Swelling and Redness, Drainage, Nausea and/or Vomiting Other/Special Instructions: Do warm soapy water soaks twice daily for 15 minutes each. Follow up with hand surgeon tomorrow. Monitor blood pressure at home and keep log to bring to primary care. - Discharge Plan *PRESCRIPTION DRUG MONITORING PROGRAM REVIEWED*: Not Applicable *COPY OF PRESCRIPTION DRUG MONITORING REPORT IN PATIENT DAYA: Not Applicable Prescriptions/Med Rec: amLODIPine [Norvasc] 5 mg PO DAILY #30 tablet Doxycycline [Vibra-Tabs] 100 mg PO Q12HR #20 tab Home Medications: Home Meds Gabapentin [Neurontin] 600 mg PO TID 01/01/20 [History] Budesonide/Formoterol Fumarate [Symbicort 160-4.5 Mcg Inhaler] 1 puff INH BID 01/02/20 [History] Sertraline [Zoloft] 100 mg PO QAM 01/02/20 [History] tiZANidine [Zanaflex] 8 mg PO BID PRN 01/02/20 [History] Doxycycline [Vibra-Tabs] 100 mg PO Q12HR #20 tab 01/05/20 [Rx] amLODIPine [Norvasc] 5 mg PO DAILY #30 tablet 01/05/20 [Rx] Oxygen Therapy Mode: Room Air Patient Handouts: Cellulitis, Adult, Doxycycline tablets or capsules, Amlodipine tablets [facility] - 01/16/20 10:30 am Tamia Singh MD [Ordering Only Provider] - 01/06/20 1:15 pm (Hernán Ryan. Please bring Insurance information, ID and mask on your visit.) - Discharge Summary/Plan Comment DC Time >30 min.: No - Patient Data Vitals - Most Recent: Last Vital Signs Temp 96.8 F L 01/05/20 07:48 Pulse 64 01/05/20 07:48 Resp 14 01/05/20 07:48 BP 145/90 H 01/05/20 08:21 Pulse Ox 95 01/05/20 07:48 Weight - Most Recent: 94.347 kg I&O - Last 24 hours: Intake & Output 01/04/20 01/05/20 01/05/20 22:59 06:59 14:59 Intake Total 2328 1834 854 Output Total 1855 1500 Balance 475 334 854 Lab Results - Last 24 hrs: Laboratory Results - last 24 hr 01/05/20 Range/Units 05:40 WBC 6.06 (4.0-11.0) K/uL RBC 4.86 (4.50-5.90) M/uL Hgb 13.6 (13.0-17.0) g/dL Hct 42.3 (38.0-50.0) % MCV 87.0 (80.0-98.0) fL MCH 28.0 (27.0-32.0) pg MCHC 32.2 (31.0-37.0) g/dL RDW Std Deviation 41.7 (28.0-62.0) fl RDW Coeff of Fredo 13 (11.0-15.0) % Plt Count 264 (150-400) K/uL MPV 9.70 (7.40-12.00) fL Neut % (Auto) 55.6 (48.0-80.0) % Lymph % (Auto) 33.3 (16.0-40.0) % [place] % (Auto) 9.1 (0.0-15.0) % Eos % (Auto) 1.5 (0.0-7.0) % Baso % (Auto) 0.5 (0.0-1.5) % Neut # (Auto) 3.4 (1.4-5.7) K/uL Lymph # (Auto) 2.0 (0.6-2.4) K/uL [place] # (Auto) 0.6 (0.0-0.8) K/uL Eos # (Auto) 0.1 (0.0-0.7) K/uL Baso # (Auto) 0.0 (0.0-0.1) K/uL Nucleated RBC % 0.0 /100WBC Nucleated RBCs # 0 K/uL SNEHAL Results - Last 24 hrs: Microbiology 01/01/20 23:57 Wound Culture - Final Finger, Right - Right Index Shewanella Putrefaciens 01/01/20 18:13 Aerobic Blood Culture - Preliminary Blood - Venous - Lab Draw NO GROWTH AFTER 3 DAYS Anaerobic Blood Culture - Preliminary NO GROWTH AFTER 3 DAYS 01/01/20 18:07 Aerobic Blood Culture - Preliminary Blood - Venous NO GROWTH AFTER 3 DAYS Anaerobic Blood Culture - Preliminary NO GROWTH AFTER 3 DAYS Med Orders - Current: Current Medications Acetaminophen (Tylenol) 650 mg PO Q4H PRN PRN Reason: Pain (Mild 1-3)/fever Albuterol/Ipratropium (Duoneb 3.0-0.5 Mg/3 Ml) 3 ml NEB Q4HRRT PRN PRN Reason: Shortness Of Breath/wheezing Amlodipine Besylate (Norvasc) 5 mg PO DAILY [facility] Last Admin: 01/05/20 08:21 Dose: 5 mg Documented by: Bacitracin (Bacitracin Oint) 0 gm TOP TID [facility] Last Admin: 01/05/20 05:58 Dose: 1 applic Documented by: Vancomycin HCl 1.25 gm/ Sodium (Chloride) 250 mls @ 166.667 mls/hr IV Q12H [facility] Last Admin: 01/05/20 08:19 Dose: 166.667 mls/hr Documented by: Clindamycin Phosphate 600 mg/ (Premix) 50 mls @ 94.34 mls/hr IV Q8H [facility] Last Admin: 01/05/20 09:56 Dose: 94.34 mls/hr Documented by: Ceftriaxone Sodium/Dextrose 2 (gm/ Premix) 50 mls @ 100 mls/hr IV Q24H [facility] Last Admin: 01/05/20 10:37 Dose: 100 mls/hr Documented by: Budesonide/Formoterol Fumarate [Symbicort 160-4.5 Mcg Inh 1 each INH BID [facility] Last Admin: 01/05/20 08:21 Dose: 1 each Documented by: Sertraline [Zoloft] (100 Mg) 1 each PO QAM [facility] Last Admin: 01/05/20 08:21 Dose: 1 each Documented by: Tizanidine [Zanaflex (] 4 Mg) 2 each PO BID PRN PRN Reason: Muscle Spasm Last Admin: 01/04/20 21:53 Dose: 2 each Documented by: Gabapentin 600 Mg 1 each PO TID [facility] Last Admin: 01/05/20 05:58 Dose: 1 each Documented by: Sodium Chloride (Saline Flush) 10 ml FLUSH ASDIRECTED PRN PRN Reason: Keep Vein Open Last Admin: 01/01/20 18:12 Dose: 10 ml Documented by: Sodium Chloride (Saline Flush) 2.5 ml FLUSH ASDIRECTED PRN PRN Reason: Keep Vein Open Last Admin: 01/01/20 18:12 Dose: 2.5 ml Documented by: Vancomycin HCl (Pharmacy To Dose - Vancomycin) 1 dose .XX ASDIRECTED [facility] Discontinued Medications Diphtheria/Tetanus/Acell Pertussis (Adacel) 0.5 ml IM .ONCE ONE Stop: 01/02/20 14:53 Last Admin: 01/02/20 15:26 Dose: 0.5 ml Documented by: Escitalopram Oxalate (Lexapro) 10 mg PO DAILY [facility] Last Admin: 01/02/20 09:17 Dose: Not Given Documented by: Gabapentin (Neurontin) 600 mg PO TID [facility] Last Admin: 01/02/20 14:37 Dose: 600 mg Documented by: Sodium Chloride (Normal Saline) 1,000 mls @ 999 mls/hr IV .Bolus ONE Stop: 01/01/20 18:48 Last Admin: 01/01/20 18:12 Dose: 999 mls/hr Documented by: Vancomycin HCl 1.25 gm/ Sodium (Chloride) 250 mls @ 167 mls/hr IV ONETIME ONE Stop: 01/01/20 19:22 Last Admin: 01/01/20 18:12 Dose: 167 mls/hr Documented by: Lactated Ringer's (Ringers, Lactated) 1,000 mls @ 100 mls/hr IV ASDIRECTED [facility] Last Admin: 01/05/20 02:07 Dose: 100 mls/hr Documented by: Clindamycin Phosphate 450 mg/ (Sodium Chloride) 53 mls @ 100 mls/hr IV Q8H [facility] Clindamycin Phosphate (Cleocin In D5w) 37.5 mls @ 75 mls/hr IV ONETIME ONE Stop: 01/02/20 01:59 Last Admin: 01/02/20 02:00 Dose: 75 mls/hr Documented by: Ceftriaxone Sodium/Dextrose 2 (gm/ Premix) 50 mls @ 100 mls/hr IV Q24H [facility] Last Admin: 01/02/20 08:43 Dose: Not Given Documented by: Iopamidol (Isovue Multipack-370 (76%)) 75 ml IVPUSH ONETIME ONE Stop: 01/02/20 12:24 Last Admin: 01/02/20 12:24 Dose: 75 ml Documented by: Vancomycin HCl (Vancomycin) Confirm Administered Dose 1.25 gm .ROUTE .STK-MED ONE Stop: 01/01/20 18:10 Last Admin: 01/01/20 18:33 Dose: Not Given Documented by: Vancomycin HCl (Pharmacy To Dose - Vancomycin) 1 dose .XX ASDIRECTED [facility]
== END 2020-01-05 11:55 | disposition home or self-care (01) | DRG 603 ==
LOC: MW.ED 16:20 → MW.MS 19:13 → OBSVTOIN 19:13 → MW.MS 01-02 14:36
PROVIDERS: ADMIT Student in an Organized Health Care Education/Training Program; ATTEND Student in an Organized Health Care Education/Training Program
DX: L03.012 Cellulitis of left finger (principal); L02.511 Cutaneous abscess of right hand; S61.250A Open bite of right index finger without damage to nail, initial encounter; E78.5 Hyperlipidemia, unspecified; H93.19 Tinnitus, unspecified ear; I10 Essential (primary) hypertension; E78.00 Pure hypercholesterolemia, unspecified; G89.29 Other chronic pain; M54.9 Dorsalgia, unspecified; Z79.899 Other long term (current) drug therapy; Z98.890 Other specified postprocedural states; W55.01XA Bitten by cat, initial encounter; Z20.828 Contact with and (suspected) exposure to other viral communicable diseases
CPT/HCPCS: 36415; 73120; 80053; 83605; 83735; 85025; 87040 ×2; 96365; 99284; J3370; J7030; J7050; 73201-26-RT; 73201-RT; 80048; 80061; 80202; 83036; 84100; 87070; 87077; 87186; 90471; 90715; 96361; 96366; 96367; 96375; 99221; 99231; 99238; A9270-GY; G0378; J0696; J3490; J7120; Q9967; U0002